=== PATIENT | male | born 1960 | race African-American/Black ===

== ENCOUNTER 2017-02-23 08:25 | Emergency (ER) | payer OTHER ==
[2017-02-23 08:36] VITALS: BP 115/75; PULSE 90; TEMP 97.8; BMI 33.6
--- NOTE | 2017-02-23 09:11 | PDOC ---
History of Present Illness - General Chief Complaint: Injury Stated Complaint: FALL, PAIN Time Seen by Provider: 02/23/17 08:46 History Source: Patient Exam Limitations: No Limitations - History of Present Illness Initial Comments: 02/23/17 10:39 CHIEF COMPLAINT: Accidental fall, pain to left elbow back and left lower lateral leg HISTORY OF PRESENT ILLNESS: Patient is a 57-year-old male, history of hypertension presents for evaluation of pain to back, left lateral lower leg and left elbow. On Wednesday patient was standing next to a meter that fell over and fell on top of him. Did not seek medical treatment, now with pain as noted above. Patient is ambulatory to the ER with no limp. No visible traumatic injury. MEDS:[ See medication list] ALLERGIES: [Penicillin] REVIEW OF SYSTEMS: GENERAL/CONSTITUTIONAL: Awake alert and oriented HEAD, EYES, EARS, NOSE AND THROAT: No change in vision. No facial edema, no bruising. NO active bleeding. Nares intact. RESPIRATORY: No cough, wheezing, or hemoptysis. CARDIAC: Denies chest pain, no shortness of breathe. MUSCULOSKELETAL: No spinal point tenderness, pain to generalized lower back, left lateral lower leg and left elbow , Good ROM to all four extremeties. NO CVA tenderness. [no] lateral neck pain. GI/: Denies abdominal pain, no nausea or vomiting, no bloody stool, no Hematuria. SKIN : No erythema or bruising noted. No abrasion or lacerations. NEUROLOGIC: No loss of consciousness, no numbness or tingling. PHYSICAL EXAM: GENERAL: Awake and alert and oriented x3. EYES: The pupils are equal, round, and reactive to light, with clear, conjunctiva. Good extraocular movement. No nystagmus NOSE: No nasal trauma . Midface stable MOUTH: Teeth intact. EARS: The ear canals and tympanic membranes are normal without trauma. No drainage. NECK: No Lower cervical C-spine tenderness, no pain with chin to chest. CHEST: The lungs are clear without crackles, or wheezes. No subcutaneous emphysema. No crepitus. HEART: Heart is regular rhythm, with normal S1 and S2, no murmurs. ABDOMEN: The abdomen is soft and nontender with normal bowel sounds. There is no guarding or rebound. MUSCULOSKELETAL: No spinal point tenderness. No bruising or erythema. Pelvis stable. EXTREMITIES: Extremities are normal. No visible traumatic injury. Pain to generalized lower back, left elbow and left lower leg with no visible traumatic injury, soft tissue pain on palpation. NEUROLOGICAL:Mental status: The patient is oriented x3. No Generalized headache , Romberg [-] Cranial nerves: Cranial nerves II through XII are intact Motor: The upper extremities are 5 over 5 in all muscle groups. The lower extremities are 5 over 5 in all muscle groups. Sensation: Sensation is intact to light touch throughout. Cerebellar: [id number] is normal in both upper extremities. Heel-knee- arredondo is normal in both lower extremities. Reflexes: 2+ and symmetric in the upper and lower extremities. Gait: Normal. Heel and toe walking are normal. Tandem gait is normal. SKIN: Without edema, erythema or bruising. No abrasions or lacerations. 02/23/17 14:56 02/23/17 17:57 Past History - Past Medical History Allergies/Adverse Reactions: Allergies Allergy/AdvReac Type Severity Reaction Status Date / Time Penicillins Allergy Hives Verified 02/23/17 08:31 Home Medications: Ambulatory Orders Amlodipine Besylate [Norvasc -] 10 mg PO DAILY #0 tablet 03/15/14 Omeprazole [Prilosec] 20 mg PO PRN PRN #0 capsule. 03/15/14 Oxycodone HCl/Acetaminophen [Percocet 7.5-325 mg Tablet] 1 - 2 tab PO Q4H #60 tablet 03/15/14 Telmisartan [Micardis] 80 mg PO DAILY #0 tablet 03/15/14 Anemia: No Asthma: Yes Cancer: No Cardiac Disorders: No CVA: No COPD: No CHF: No Dementia: No Diabetes: No GI Disorders: No Disorders: No HTN: Yes Hypercholesterolemia: No Liver Disease: No Seizures: No Thyroid Disease: No - Surgical History Abdominal Surgery: No Appendectomy: No Cardiac Surgery: No Cholecystectomy: No Lung Surgery: No Neurologic Surgery: Yes (NECK SX WITH PLATE) Orthopedic Surgery: Yes (RIGHT TRIGGER FINGER SX) - Suicide/Smoking/Psychosocial Hx Smoking History: Never smoked Have you smoked in the past 12 months: No If you are a former smoker, when did you quit?: 5 YRS AGO Information on smoking cessation initiated: No Hx Alcohol Use: No Drug/Substance Use Hx: No Substance Use Type: None Hx Substance Use Treatment: No *Physical Exam - Vital Signs Last Vital Signs Temp Pulse Resp BP Pulse Ox 97.8 F 90 18 115/75 100 02/23/17 08:32 02/23/17 08:32 02/23/17 08:32 02/23/17 08:32 02/23/17 08:32 ED Treatment Course - RADIOLOGY Radiology Studies Ordered: Category Date Time Status ELBOW-LEFT [RAD] Stat Radiology 02/23/17 09:09 Ordered SPINE-LUMBAR SACRAL [RAD] Stat Radiology 02/23/17 09:09 Ordered Medical Decision Making - Medical Decision Making 02/23/17 15:04 A/P : Patient here for evaluation s/p fall, pain to the lower back, left elbow and left lower leg. Patient is ambulatory with no acute distress, there is no visible traumatic injury. Patient sent to x-ray, 02/23/17 17:58 X-ray with no acute bony abnormalities, no evidence of compression deformities, there is an L5-S1 disc space narrowing with facet joint arthropathy, grade 1 degenerative anterior spondylosis listhesis of L5 and S1, x-ray of elbow with no acute abnormalities intact radial head. I've explained to patient that there is no acute bony injury injury is chronic in nature if pain persists will need to follow-up with orthopedics. Motrin or Tylenol as needed for pain I discussed the physical exam findings, ancillary test results and final diagnoses with the patient. I answered all of the patient's questions. The patient was satisfied with the care received and felt comfortable with the discharge plan and treatment plan. The patient will call to arrange follow-up and will return to the Emergency Department with any new, persistent or worsening symptoms. *DC/Admit/Observation/Transfer Diagnosis at time of Disposition: Accidental fall Qualifiers: Encounter type: initial encounter Qualified Code(s): W19.XXXA - Unspecified fall, initial encounter Back pain Qualifiers: Back pain location: low back pain Chronicity: acute Back pain laterality: bilateral Sciatica presence: without sciatica Qualified Code(s): M54.5 - Low back pain Elbow pain Qualifiers: Laterality: left Qualified Code(s): M25.522 - Pain in left elbow Leg pain Qualifiers: Laterality: left Qualified Code(s): M79.605 - Pain in left leg - Discharge Dispostion Disposition: HOME Condition at time of disposition: Good Admit: No - Referrals Referrals: Manisha Byrd MD [Primary Care Provider] - - Patient Instructions Additional Instructions: Recommend follow-up with orthopedics Motrin as needed for pain - Post Discharge Activity
== END 2017-02-23 10:51 | disposition home or self-care (01) ==
LOC: JERFT 08:25
DX: M54.5 Low back pain (principal); M79.605 Pain in left leg; M25.522 Pain in left elbow; W18.09XA Striking against other object with subsequent fall, initial encounter; Y93.89 Activity, other specified; Y92.89 Other specified places as the place of occurrence of the external cause; Y99.8 Other external cause status; I10 Essential (primary) hypertension
CPT/HCPCS: 72100-TC; 73070-TC-LT; 99281-25

== ENCOUNTER 2020-04-01 14:31 | Emergency (ER) | payer OTHER ==
[2020-04-01 14:46] VITALS: BP 126/84; PULSE 100; TEMP 98.1; BMI 37.0
[2020-04-01] MEDS ORDERED: DIPHTH,PERTUSS(ACELL),TET 0.5 ML DISP.SYRIN IM ONE ×2 (15:44→16:12)
[2020-04-01 16:55] LABS: BASO % 0.2 % (0-2.0); EOS % 0.7 % (0-4.5); HEMATOCRIT 45.8 % (35.4-49); HEMOGLOBIN 14.9 GM/dL (11.7-16.9); LYMPH % 27.7 % (8-40); MCH 26.9 pg (25.7-33.7); MCHC 32.5 g/dl (32.0-35.9); MEAN CELL VOLUME 82.9 fl (80-96); MEAN PLT VOLUME 9.7 fl (7.5-11.1); MONO % 7.8 % (3.8-10.2); NEUT % 63.6 % (42.8-82.8); PLATELET COUNT 179 K/MM3 (134-434); RBC 5.53 M/mm3 (4.00-5.60); RDW 15.3 % (11.9-15.9); WHITE BLOOD COUNT 8.5 K/mm3 (4.0-10.0)
[2020-04-01 17:03] LABS: INR 0.93 (0.83-1.09); PROTHROMBIN TIME (PATIENT) 11.5 SEC (9.7-13.0)
[2020-04-01 17:05] LABS: ACTIVATED PTT 30.9 SECONDS (25.2-36.5)
[2020-04-01 17:25] LABS: POTASSIUM 4.5 mmol/L (3.5-5.1)
[2020-04-01 17:26] LABS: CALCIUM 9.4 mg/dL (8.5-10.1)
[2020-04-01 17:27] LABS: ALBUMIN 3.5 g/dl (3.4-5.0); BLOOD UREA NITROGEN 35.6 mg/dL (7-18)
[2020-04-01 17:30] LABS: CREATININE 2.2 mg/dL (0.55-1.3)
[2020-04-01 17:32] LABS: BILIRUBIN,TOTAL 0.3 mg/dL (0.2-1)
[2020-04-01] MEDS ORDERED: SODIUM CHLORIDE 1,000 ML IV SCH (17:45)
[2020-04-01] MEDS ORDERED: CLINDAMYCIN HCL 150 MG CAPSULE (FP) PO ONE (18:44)
[2020-04-01] MEDS ORDERED: CLINDAMYCIN HCL 150 MG CAPSULE (FP) ONE (19:47)
== END 2020-04-01 20:40 | disposition left against medical advice (07) ==
LOC: JER 14:31
PROC: 3E0234Z Introduction of Serum, Toxoid and Vaccine into Muscle, Percutaneous Approach (ICD-10-PCS; principal; 2020-04-01)
DX: S31.109A Unspecified open wound of abdominal wall, unspecified quadrant without penetration into peritoneal cavity, initial encounter (principal)
CPT/HCPCS: 36415; 71260-TC; 74177-TC; 80053; 85025; 85610; 85730; 86850; 86900; 86901; 90715; 99285-25; Q9967

== ENCOUNTER 2021-04-07 04:31 | Day surgery (SDC) | payer OTHER ==
[2021-04-04 12:58] VITALS: BMI 38.3
[2021-04-07] MEDS ORDERED: ONDANSETRON 4 MG/2 ML VIAL IVPUSH PRN (13:52)
[2021-04-07] MEDS ORDERED: PROMETHAZINE HCL 25 MG/1 ML VIAL IVPUSH PRN (13:52)
[2021-04-07] MEDS ORDERED: PROPOFOL 20 ML ONE ×3 (13:55→14:18)
[2021-04-07] MEDS ORDERED: MIDAZOLAM HCL 2 MG/2 ML SINGLE DOSE VIAL ONE (13:55)
[2021-04-07] MEDS ORDERED: LACTATED RINGERS SOLUTION 1,000 ML IV SCH (14:00)
[2021-04-07] MEDS ORDERED: LIDOCAINE HCL/PF 2% SDV 5ML VIAL ONE (14:19)
[2021-04-07] MEDS ORDERED: ACETAMINOPHEN 1000 MG/100 ML BAG IVPB ONE ×2 (14:30→16:22)
[2021-04-07] MEDS ORDERED: LIDOCAINE HCL 2% JELLY 10 ML CARTRIDGE ONE (14:42)
[2021-04-07] MEDS ORDERED: ACETAMINOPHEN INJECTION 100 ML IVPB ONE (15:39)
[2021-04-07] MEDS ORDERED: ACETAMINOPHEN 325 MG TABLET (FP) PO ONE (16:16)
[2021-04-07 17:23] VITALS: BP 101/53; PULSE 84; TEMP 97.9
== END 2021-04-07 18:11 | disposition home or self-care (01) ==
LOC: JASU-SURG 04:31
PROVIDERS: ATTEND Urology
PROC: 0TBC8ZX Excision of Bladder Neck, Via Natural or Artificial Opening Endoscopic, Diagnostic (ICD-10-PCS; 2021-04-07)
PROC: 0TND8ZZ Release Urethra, Via Natural or Artificial Opening Endoscopic (ICD-10-PCS; 2021-04-07)
PROC: 0T7D8DZ Dilation of Urethra with Intraluminal Device, Via Natural or Artificial Opening Endoscopic (ICD-10-PCS; 2021-04-07)
PROC: 0VB08ZX Excision of Prostate, Via Natural or Artificial Opening Endoscopic, Diagnostic (ICD-10-PCS; 2021-04-07)
PROC: 0TND8ZZ Release Urethra, Via Natural or Artificial Opening Endoscopic (ICD-10-PCS; principal; 2021-04-07 14:00)
PROC: 0VB08ZX Excision of Prostate, Via Natural or Artificial Opening Endoscopic, Diagnostic (ICD-10-PCS; 2021-04-07 14:00)
DX: N32.0 Bladder-neck obstruction (principal); N35.819 Other urethral stricture, male, unspecified site; N40.0 Benign prostatic hyperplasia without lower urinary tract symptoms
CPT/HCPCS: 88305-TC; 94760

== ENCOUNTER 2021-08-15 16:25 | Observation (INO) | payer OTHER ==
[2021-08-15] MEDS ORDERED: ASPIRIN 81 MG CHEWABLE TABLETS PO ONE (20:09)
[2021-08-15] MEDS ORDERED: ASPIRIN 81 MG CHEWABLE TABLETS ONE (20:46)
[2021-08-15 21:14] LABS: BASO % 0.6 % (0-2.0); EOS % 0.7 % (0-4.5); HEMATOCRIT 51.8 % (35.4-49); HEMOGLOBIN 17.1 GM/dL (11.7-16.9); LYMPH % 29.9 % (8-40); MCH 27.2 pg (25.7-33.7); MEAN CELL VOLUME 82.4 fl (80-96); MEAN PLT VOLUME 10.1 fl (7.5-11.1); MONO % 6.8 % (3.8-10.2); PLATELET COUNT 174 10^3/uL (134-434); RBC 6.29 M/mm3 (4.00-5.60); RDW 14.3 % (11.9-15.9); WHITE BLOOD COUNT 6.8 K/mm3 (4.0-10.0)
[2021-08-15 21:32] LABS: CHLORIDE 92 mmol/L (98-107); SODIUM 127 mmol/L (136-145)
[2021-08-15 21:35] LABS: CALCIUM 9.9 mg/dL (8.5-10.1)
[2021-08-15 21:36] LABS: ALBUMIN 3.9 g/dl (3.4-5.0); ANION GAP 10 MMOL/L (8-16); BLOOD UREA NITROGEN 36.3 mg/dL (7-18); CO2 25 mmol/L (21-32)
[2021-08-15 21:38] LABS: CREATININE 3.5 mg/dL (0.55-1.3); SGOT/AST 20 U/L (15-37); SGPT/ALT 58 U/L (13-61)
[2021-08-15 21:39] LABS: TOT PROT 8.1 g/dl (6.4-8.2)
[2021-08-15 21:40] LABS: BILIRUBIN,TOTAL 0.5 mg/dL (0.2-1)
[2021-08-15 21:41] LABS: ALK PHOS 121 U/L (45-117)
[2021-08-15 21:43] LABS: N-TERMINAL BNP 24.9 pg/ml (5-125)
[2021-08-15 21:46] LABS: GLUCOSE,RANDOM 641 mg/dL (74-106)
[2021-08-15] MEDS ORDERED: SODIUM CHLORIDE 1,000 ML IV STA ×3 (21:50→23:45)
[2021-08-15] MEDS ORDERED: INSULIN REGULAR HUMAN 100 UNITS/ML *VIAL IVPUSH ONE ×2 (21:54→23:41)
[2021-08-16] MEDS ORDERED: ACETAMINOPHEN 325 MG TABLET (FP) PO PRN (00:45)
[2021-08-16] MEDS ORDERED: SODIUM CHLORIDE 1,000 ML IV SCH (00:45)
[2021-08-16 00:56] LABS: ANION GAP 6 MMOL/L (8-16); CALCIUM 8.6 mg/dL (8.5-10.1); CHLORIDE 100 mmol/L (98-107); CO2 26 mmol/L (21-32); CREATININE 3.2 mg/dL (0.55-1.3); GLUCOSE,RANDOM 488 mg/dL (74-106); SODIUM 132 mmol/L (136-145)
[2021-08-16] MEDS: INSULIN SLIDING SCALE (NOVOLOG) 1 VIAL SQ SCH ×6 (03:19→21:55)
[2021-08-16] MEDS ORDERED: PANTOPRAZOLE SODIUM 40 MG VIAL IVPUSH ONE (03:19)
[2021-08-16] MEDS ORDERED: DOCUSATE SODIUM 100 MG CAPSULE (FP) PO PRN (03:20)
[2021-08-16] MEDS ORDERED: oxyCODONE HCL 5 MG TABLET PO PRN (03:20)
[2021-08-16 04:00] LABS: MAGNESIUM 2.4 mg/dL (1.8-2.4)
[2021-08-16] MEDS ORDERED: ALBUTEROL SO4 HFA INHALER IH PRN (07:48)
[2021-08-16] MEDS: SODIUM CHLORIDE 1,000 ML IV SCH (09:15)
[2021-08-16] MEDS ORDERED: PANTOPRAZOLE 40 MG TABLET PO SCH (10:00)
[2021-08-16] MEDS: ENOXAPARIN NA (PORCINE) 40 MG/0.4 ML DISP.SYRIN SQ SCH (10:13)
[2021-08-16] MEDS: MELATONIN 5 MG TABLETS PO PRN ×2 (10:14→21:56)
[2021-08-16] MEDS: LOSARTAN POTASSIUM 50 MG TABLET PO SCH (10:14)
[2021-08-16] MEDS: FLUTICASONE/UMECLIDIN/VILANTER(100-62.5-25 TRELEGY ELLIPTA) INAHLER IH SCH (10:15)
[2021-08-16] MEDS: INSULIN (LEVEMIR) 100 UNITS/ML UNITS SQ SCH ×2 (13:03→21:55)
[2021-08-16 13:44] VITALS: BMI 36.8
[2021-08-16] MEDS: MAG HYDROX/AL HYDROX/SIMETH 30 ML UNIT-DOSE CUP PO PRN ×2 (19:13→23:20)
[2021-08-16] MEDS: ATORVASTATIN CA 10 MG TABLET (FP) PO SCH (21:55)
[2021-08-17] MEDS: INSULIN SLIDING SCALE (NOVOLOG) 1 VIAL SQ SCH ×6 (02:56→21:37)
[2021-08-17] MEDS: GLIMEPIRIDE 2 MG TABLET PO SCH (06:18)
[2021-08-17] MEDS: MAG HYDROX/AL HYDROX/SIMETH 30 ML UNIT-DOSE CUP PO PRN (06:18)
[2021-08-17] MEDS: sitaGLIPtin PHOSPHATE 50 MG TABLET PO SCH (06:18)
[2021-08-17] MEDS: INSULIN (LEVEMIR) 100 UNITS/ML UNITS SQ SCH ×2 (06:19→21:36)
[2021-08-17] MEDS: SODIUM CHLORIDE 1,000 ML IV SCH ×2 (06:19→10:35)
[2021-08-17 07:21] LABS: INR 0.96 (0.83-1.09)
[2021-08-17 07:22] LABS: BASO % 0.5 % (0-2.0); EOS % 2.4 % (0-4.5); HEMATOCRIT 43.6 % (35.4-49); HEMOGLOBIN 14.3 GM/dL (11.7-16.9); LYMPH % 40.9 % (8-40); MCH 26.9 pg (25.7-33.7); MCHC 32.8 g/dl (32.0-35.9); MEAN CELL VOLUME 82.1 fl (80-96); MEAN PLT VOLUME 10.4 fl (7.5-11.1); MONO % 6.3 % (3.8-10.2); NEUT % 49.9 % (42.8-82.8); PLATELET COUNT 133 10^3/uL (134-434); RBC 5.31 M/mm3 (4.00-5.60); RDW 14.3 % (11.9-15.9); WHITE BLOOD COUNT 4.7 K/mm3 (4.0-10.0)
[2021-08-17 07:24] LABS: ACTIVATED PTT 30.8 SECONDS (25.2-36.5)
[2021-08-17 07:33] LABS: BLOOD UREA NITROGEN 24.7 mg/dL (7-18); CALCIUM 8.3 mg/dL (8.5-10.1)
[2021-08-17 07:37] LABS: CREATININE 1.9 mg/dL (0.55-1.3)
[2021-08-17] MEDS: FLUTICASONE/UMECLIDIN/VILANTER(100-62.5-25 TRELEGY ELLIPTA) INAHLER IH SCH (10:33)
[2021-08-17] MEDS: ENOXAPARIN NA (PORCINE) 40 MG/0.4 ML DISP.SYRIN SQ SCH (10:34)
[2021-08-17] MEDS: LOSARTAN POTASSIUM 50 MG TABLET PO SCH (10:35)
[2021-08-17] MEDS: ATORVASTATIN CA 10 MG TABLET (FP) PO SCH (21:32)
[2021-08-17] MEDS: PANTOPRAZOLE 40 MG TABLET PO SCH (21:36)
[2021-08-18] MEDS: sitaGLIPtin PHOSPHATE 50 MG TABLET PO SCH (06:28)
[2021-08-18] MEDS: INSULIN SLIDING SCALE (NOVOLOG) 1 VIAL SQ SCH ×2 (06:28→13:26)
[2021-08-18] MEDS: INSULIN (LEVEMIR) 100 UNITS/ML UNITS SQ SCH (06:28)
[2021-08-18] MEDS: GLIMEPIRIDE 2 MG TABLET PO SCH (06:28)
[2021-08-18] MEDS: LOSARTAN POTASSIUM 50 MG TABLET PO SCH ×2 (08:14→13:09)
[2021-08-18 08:26] LABS: CALCIUM 8.6 mg/dL (8.5-10.1)
[2021-08-18 08:27] LABS: BLOOD UREA NITROGEN 20.1 mg/dL (7-18)
[2021-08-18 08:30] LABS: CREATININE 1.8 mg/dL (0.55-1.3)
[2021-08-18] MEDS ORDERED: REGADENOSON 0.4 MG/5 ML PRE-FILLED SYRINGE IVPUSH ONE ×2 (11:01→11:15)
[2021-08-18] MEDS: PANTOPRAZOLE 40 MG TABLET PO SCH (13:26)
[2021-08-18] MEDS: FLUTICASONE/UMECLIDIN/VILANTER(100-62.5-25 TRELEGY ELLIPTA) INAHLER IH SCH (13:27)
[2021-08-18] MEDS: ENOXAPARIN NA (PORCINE) 40 MG/0.4 ML DISP.SYRIN SQ SCH (13:27)
[2021-08-18 14:57] VITALS: BP 129/75; PULSE 86; TEMP 98.7
[2021-08-18] MEDS ORDERED: ASPIRIN COATED 81 MG TABLET.EC PO SCH (15:00)
[2021-08-18] MEDS ORDERED: metoPROLOL SUCCINATE 25 MG TAB.SR.24H (FP) PO SCH (18:15)
== END 2021-08-18 18:33 | disposition home or self-care (01) ==
LOC: JERFT 16:25 → JER 16:25 → JERBED 22:23 → J4W 08-16 07:13
PROVIDERS: ADMIT Hospitalist; ATTEND Internal Medicine
PROC: 3E023GC Introduction of Other Therapeutic Substance into Muscle, Percutaneous Approach (ICD-10-PCS; principal; 2021-08-15)
PROC: 3E013VG Introduction of Insulin into Subcutaneous Tissue, Percutaneous Approach (ICD-10-PCS; 2021-08-15)
PROC: 3E033VG Introduction of Insulin into Peripheral Vein, Percutaneous Approach (ICD-10-PCS; 2021-08-15)
PROC: 3E0337Z Introduction of Electrolytic and Water Balance Substance into Peripheral Vein, Percutaneous Approach (ICD-10-PCS; 2021-08-15)
DX: N17.9 Acute kidney failure, unspecified (principal); E11.65 Type 2 diabetes mellitus with hyperglycemia; M54.2 Cervicalgia; I10 Essential (primary) hypertension; E78.5 Hyperlipidemia, unspecified; E87.1 Hypo-osmolality and hyponatremia; K21.9 Gastro-esophageal reflux disease without esophagitis; N40.0 Benign prostatic hyperplasia without lower urinary tract symptoms; E66.9 Obesity, unspecified; Z68.36 Body mass index [BMI] 36.0-36.9, adult; Z87.19 Personal history of other diseases of the digestive system; Z86.39 Personal history of other endocrine, nutritional and metabolic disease; Z88.0 Allergy status to penicillin; R07.9 Chest pain, unspecified
CPT/HCPCS: 0241U-QW; 36415; 71046-TC-FY; 78452-TC; 80048; 80053; 82962; 83036; 83735; 83880; 84484; 85025; 85610; 85730; 93005; 93010; 93017; 93306-TC; 96361; 96372; 96374; 96375; 99285-25; A9502; G0378; J2785

== ENCOUNTER 2022-08-27 13:41 | Emergency (ER) | payer OTHER ==
[2022-08-27 13:51] VITALS: BP 112/63; PULSE 74; RESP 18; TEMP 98.2; BMI 33.5
[2022-08-27] MEDS ORDERED: ACETAMINOPHEN 1000 MG/100 ML BAG IVPB ONE (15:34)
[2022-08-27] MEDS ORDERED: ACETAMINOPHEN INJECTION 100 ML IVPB ONE (16:21)
[2022-08-27 16:33] LABS: HEMATOCRIT 46.3 % (35.4-49); HEMOGLOBIN 15.2 GM/dL (11.7-16.9); MCH 25.9 pg (25.7-33.7); MCHC 32.8 g/dl (32.0-35.9); MEAN PLT VOLUME 9.1 fl (7.5-11.1); PLATELET COUNT 165 10^3/uL (134-434); RBC 5.86 M/mm3 (4.00-5.60); RDW 14.9 % (11.9-15.9)
[2022-08-27 16:39] LABS: EPI CELLS 5 /uL (0-25.1); HYALINE CASTS 1 /uL (0-3.1); PH,URINE 5.5 (5.0-8.0); URINE APPEARANCE CLOUDY; URINE BACTERIA 135 /uL (0-1359); URINE BILIRUBIN NEGATIVE (NEGATIVE); URINE COLOR YELLOW; URINE GLUCOSE (UA) NEGATIVE (NEGATIVE); URINE KETONE TRACE (NEGATIVE); URINE LEUK ESTERASE 2+ (NEGATIVE); URINE NITRITE NEGATIVE (NEGATIVE); URINE PROTEIN 4+ (NEGATIVE); URINE RBC 191 /uL (0-23.9); URINE WBC 1495 /uL (0-25.8)
[2022-08-27 16:52] LABS: POTASSIUM 5.6 mmol/L (3.5-5.1)
[2022-08-27 16:54] LABS: CALCIUM 9.5 mg/dL (8.5-10.1)
[2022-08-27 16:55] LABS: ALBUMIN 2.6 g/dl (3.4-5.0); BLOOD UREA NITROGEN 29.3 mg/dL (7-18)
[2022-08-27 16:58] LABS: CREATININE 2.6 mg/dL (0.55-1.3)
[2022-08-27 17:01] LABS: BILIRUBIN,TOTAL 0.4 mg/dL (0.2-1); TOT PROT 7.2 g/dl (6.4-8.2)
== END 2022-08-27 19:36 | disposition left against medical advice (07) ==
LOC: JER 13:41
PROC: 3E03329 Introduction of Other Anti-infective into Peripheral Vein, Percutaneous Approach (ICD-10-PCS; principal; 2022-08-27)
PROC: 3E033NZ Introduction of Analgesics, Hypnotics, Sedatives into Peripheral Vein, Percutaneous Approach (ICD-10-PCS; 2022-08-27)
DX: N50.82 Scrotal pain (principal); N49.2 Inflammatory disorders of scrotum; R35.0 Frequency of micturition; N45.3 Epididymo-orchitis
CPT/HCPCS: 36415; 76870-TC; 80053; 81003; 85027; 86140; 87086; 96365; 96375; 99284-25

== ENCOUNTER 2022-09-01 11:53 | Emergency (ER) | payer OTHER ==
[2022-09-01 12:10] VITALS: BP 125/77; PULSE 86; RESP 18; TEMP 97.6; BMI 33.3
[2022-09-01] MEDS ORDERED: CEFTRIAXONE 1,000 MG in DEXTROSE 5%-WATER - 50 ML IVPB ONE (12:44)
[2022-09-01 14:58] LABS: BASO % 0.5 % (0-2.0); HEMATOCRIT 45.4 % (35.4-49); LYMPH % 18.4 % (8-40); MCHC 33.1 g/dl (32.0-35.9); MEAN CELL VOLUME 78.7 fl (80-96); MEAN PLT VOLUME 8.7 fl (7.5-11.1); MONO % 6.9 % (3.8-10.2); NEUT % 73.2 % (42.8-82.8); PLATELET COUNT 235 10^3/uL (134-434); RBC 5.76 M/mm3 (4.00-5.60); RDW 14.9 % (11.9-15.9); WHITE BLOOD COUNT 7.7 K/mm3 (4.0-10.0)
[2022-09-01 15:04] LABS: INR 1.13 (0.83-1.09); PROTHROMBIN TIME (PATIENT) 13.1 SEC (9.7-13.0)
[2022-09-01 15:07] LABS: ACTIVATED PTT 38.4 SECONDS (25.2-36.5)
[2022-09-01] MEDS ORDERED: ACETAMINOPHEN 1000 MG/100 ML BAG IVPB ONE (15:18)
[2022-09-01 15:24] LABS: CHLORIDE 110 mmol/L (98-107); POTASSIUM 4.5 mmol/L (3.5-5.1); SODIUM 140 mmol/L (136-145)
[2022-09-01 15:26] LABS: CALCIUM 9.4 mg/dL (8.5-10.1)
[2022-09-01 15:27] LABS: ALBUMIN 2.8 g/dl (3.4-5.0); ANION GAP 6 MMOL/L (8-16); BLOOD UREA NITROGEN 30.9 mg/dL (7-18); CO2 24 mmol/L (21-32); GLUCOSE,RANDOM 83 mg/dL (74-106)
[2022-09-01] MEDS ORDERED: ACETAMINOPHEN INJECTION 100 ML IVPB ONE (15:28)
[2022-09-01 15:30] LABS: CREATININE 2.6 mg/dL (0.55-1.3); SGOT/AST 19 U/L (15-37); SGPT/ALT 54 U/L (13-61)
[2022-09-01 15:31] LABS: TOT PROT 7.5 g/dl (6.4-8.2)
[2022-09-01 15:32] LABS: BILIRUBIN,TOTAL < 0.1 mg/dL (0.2-1)
[2022-09-01 15:33] LABS: ALK PHOS 112 U/L (45-117)
[2022-09-01] MEDS ORDERED: CEFTRIAXONE 1 GM/50 ML BAG ONE (15:38)
[2022-09-01 16:29] LABS: EPI CELLS 26 /uL (0-25.1); HYALINE CASTS 3 /uL (0-3.1); PH,URINE 5.5 (5.0-8.0); URINE APPEARANCE CLEAR; URINE BACTERIA 4 /uL (0-1359); URINE BILIRUBIN NEGATIVE (NEGATIVE); URINE COLOR YELLOW; URINE GLUCOSE (UA) NEGATIVE (NEGATIVE); URINE KETONE NEGATIVE (NEGATIVE); URINE LEUK ESTERASE NEGATIVE (NEGATIVE); URINE NITRITE NEGATIVE (NEGATIVE); URINE PROTEIN 4+ (NEGATIVE); URINE RBC 10 /uL (0-23.9); URINE UROBILINOGEN 0.2 mg/dL (0.2-1.0); URINE WBC 46 /uL (0-25.8)
== END 2022-09-01 16:37 | disposition home or self-care (01) ==
LOC: JER 11:53
PROC: 3E03329 Introduction of Other Anti-infective into Peripheral Vein, Percutaneous Approach (ICD-10-PCS; principal; 2022-09-01)
PROC: 3E033NZ Introduction of Analgesics, Hypnotics, Sedatives into Peripheral Vein, Percutaneous Approach (ICD-10-PCS; 2022-09-01)
PROC: 3E03329 Introduction of Other Anti-infective into Peripheral Vein, Percutaneous Approach (ICD-10-PCS; 2022-09-01)
DX: N50.819 Testicular pain, unspecified (principal); N49.2 Inflammatory disorders of scrotum; I86.1 Scrotal varices; N45.1 Epididymitis
CPT/HCPCS: 36415; 76870-TC; 80053; 81003; 83605; 85025; 85610; 85730; 87086; 87491; 87591; 87661; 99284-25

== ENCOUNTER 2024-02-19 03:20 | Emergency (ER) | payer OTHER ==
[2024-02-19 03:31] VITALS: BP 129/81; PULSE 79; RESP 20; TEMP 97.7; BMI 33.4
[2024-02-19] MEDS ORDERED: LIDOCAINE 4% PATCH TP ONE (04:12)
[2024-02-19] MEDS: LIDOCAINE 5% TOPICAL PATCH TP ONE (04:13)
[2024-02-19 04:41] LABS: BASO % 0.2 % (0-2.0); EOS % 1.4 % (0-4.5); HEMATOCRIT 47.5 % (35.4-49); HEMOGLOBIN 15.7 GM/dL (11.7-16.9); LYMPH % 27.1 % (8-40); MCH 27.2 pg (25.7-33.7); MEAN CELL VOLUME 82.6 fl (80-96); MEAN PLT VOLUME 9.7 fl (7.5-11.1); MONO % 7.4 % (3.8-10.2); NEUT % 63.9 % (42.8-82.8); PLATELET COUNT 171 10^3/uL (134-434); RBC 5.76 M/mm3 (4.00-5.60); RDW 14.4 % (11.9-15.9); WHITE BLOOD COUNT 7.3 K/mm3 (4.0-10.0)
[2024-02-19 05:04] LABS: POTASSIUM 4.6 mmol/L (3.5-5.1)
[2024-02-19 05:07] LABS: ALBUMIN 3.2 g/dl (3.4-5.0); BLOOD UREA NITROGEN 43.8 mg/dL (7-18); MAGNESIUM 2.4 mg/dL (1.8-2.4)
[2024-02-19 05:10] LABS: CREATININE 3.3 mg/dL (0.55-1.3)
[2024-02-19 05:11] LABS: BILIRUBIN,TOTAL 0.3 mg/dL (0.2-1); TOT PROT 7.1 g/dl (6.4-8.2)
[2024-02-19 05:19] LABS: EPI CELLS 1 /uL (0-25.1); HYALINE CASTS 0 /uL (0-3.1); URINE APPEARANCE CLEAR; URINE BACTERIA 1 /uL (0-1359); URINE BILIRUBIN NEGATIVE (NEGATIVE); URINE COLOR YELLOW; URINE GLUCOSE (UA) 3+ (NEGATIVE); URINE KETONE NEGATIVE (NEGATIVE); URINE LEUK ESTERASE NEGATIVE (NEGATIVE); URINE NITRITE NEGATIVE (NEGATIVE); URINE PROTEIN 3+ (NEGATIVE); URINE RBC 10 /uL (0-23.9); URINE UROBILINOGEN 0.2 mg/dL (0.2-1.0); URINE WBC 4 /uL (0-25.8)
[2024-02-19 07:23] LABS: ARTERIAL BLD GAS O2 SATURATION 96.7 % (95-98); ARTERIAL BLOOD GAS BASE EXCESS -2.3 mmol/L (-2-2); ARTERIAL BLOOD GAS PO2 92.1 mmHg (80-100); ARTERIAL BLOOD GAS pH 7.352 (7.350-7.450)
[2024-02-19] MEDS ORDERED: LIDOCAINE PATCH REMOVAL MC ONE (16:00)
== END 2024-02-19 08:22 | disposition left against medical advice (07) ==
LOC: JER 03:20
DX: J02.9 Acute pharyngitis, unspecified (principal); M54.9 Dorsalgia, unspecified; R51.9 Headache, unspecified; R07.9 Chest pain, unspecified; Z20.822 Contact with and (suspected) exposure to COVID-19
CPT/HCPCS: 0241U-QW; 36415; 36600; 71046-TC-FY; 80053; 81003; 82375; 82803; 83735; 84484; 85025; 87086; 93005; 93010; 99285-25